=== PATIENT | female | born 1990 | race Caucasian/White ===

== ENCOUNTER 2024-10-10 14:24 | Emergency (ER) | payer OTHER, SELFPAY ==
[2024-10-10 14:27] VITALS: BP 125/92
--- NOTE | 2024-10-10 16:45 | ED.GENMED ---
History of Present Illness
General
Chief Complaint: Dental Problem
Source: patient
Exam Limitations: none
Time Seen by Provider: 10/10/24 16:25
Nursing documentation reviewed up to this point in time: agreed with
History of Present Illness
History of Present Illness:
33 yo female presents for left upper tooth infection. Seen at yesterday for tooth pain, started on Augmentin 875 BID, has had 3 doses. Pain in tooth has resolved but 5 hours ago while working at [facility] [employer] [employer] left cheek began to swell and is getting
worse. Denies F/C/N/V. Denies neck pain or pain with swallowing.
Past History
Past History
ED Past Medical History: Asthma and Other (3 yrs sober, Takes Vyvance and Lamictal.)
Social History
Tobacco: Non-smoker
Alcohol: None
Personal: Single
Employment: Employed
Review of Systems
Review of Systems
Allergies reviewed?: Yes
All Other Systems: ROS reviewed and negative except as documented in HPI and ROS
Phy Exam
Physical Exam
Physical Exam:
GENERAL: No acute distress. A&Ox3.
CONSTITUTIONAL: Afebrile.
EYES: clear, conjunctivae normal
ENMT: moist mucus membranes, Pharynx nl no trismus. Left cheek is mildly to moderately swollen, no redness or warmth. Palpation of left upper gingival buccal border reveals an exquisitely tender small lump, no drainage
Neck: Supple. No palpable lymphadenopathy
RESPIRATORY: Regular respirations, nonlabored, lungs clear.
CARDIOVASCULAR: Regular rate and rhythm, no murmurs, no rubs.
GI: Soft, nontender
MUSCULOSKELETAL: Moves with ease. Well perfused.
SKIN: Warm, dry, pink, cheeks are traci but no sign of cellulitis.
PSYCH: Normal mood and affect. Well kept, interactive and appropriate
NEUROLOGIC: Awake, alert and oriented. No focal neurological deficits
Course
Orders/Labs/Results
Orders:
Orders
10/10/24 16:43
CT Facial Bones W/ Iv Contrast Urgent
Comment:
Reason For Exam: Abscess left upper gum
0.9% Sodium Chloride 1000 ml [Nss] 1,000 ml IV BOLUS
10/10/24 17:01
Add On- LAB Urgent
Tests Added?: hcg. qual.
Complete Blood Count/With Diff Urgent
Comprehensive Metabolic Panel Urgent
HCG, Serum Qualitative Screen Urgent
Comment: ADD ON
Abnormal Lab Results
10/10/24
17:01
WBC 11.4 H 10^3/uL
(4.8-10.8)
Absolute Neuts (auto) 7.8 H 10^3/uL
(1.4-6.5)
Absolute Monos (auto) 0.9 H 10^3/uL
(0.1-0.6)
Glucose 101 H mg/dl
(70-99)
ALT 36 H U/L
(0-35)
10/10/24 17:01
10/10/24 17:01
Vital Signs
Initial and Last Documented VS:
Initial Vital Signs
Temp Pulse Resp BP Pulse Ox
98.7 F 108 16 125/92 99
10/10/24 14:27 10/10/24 14:27 10/10/24 14:27 10/10/24 14:27 10/10/24 14:27
Last Documented Vital Signs
Temp Pulse Resp BP Pulse Ox
98.7 F 88 20 130/74 99
10/10/24 14:27 10/10/24 20:11 10/10/24 20:11 10/10/24 20:11 10/10/24 20:11
MDM/Problems Addressed
Differential Diagnosis Includes:
Dental abscess, periapical abscess, periodontal vs gingival abscess, facial cellulitis
MDM/Problems Addressed:
33 yo female presents for left upper tooth infection. Seen at yesterday for tooth pain, started on Augmentin 875 BID, has had 3 doses. Pain in tooth has resolved but 5 hours ago while working at [facility] [employer] left cheek began to swell and is getting
worse. Denies F/C/N/V. Denies neck pain or pain with swallowing.
CBC with no clinically significant abnormality
CMP with no clinically significant abnormality
hCG negative
Facial bone CT reviewed and radiology report read:
There is mild increased density to the subcutaneous tissues about the left maxilla. There is no definitive focal fluid collection to suggest abscess. The airway is unremarkable. There is bony loss about the roots of the left first maxillary molar
tooth. This could be a periapical cyst. Periapical abscess formation cannot be excluded. It measures roughly 8 mm.
IMPRESSION: No soft tissue abscess formation identified.
Mild inflammatory changes of the soft tissues about the left cheek.
Moderate bilateral submental and cervical lymphadenopathy.
Bony changes about the left first maxillary molar tooth.
Pt does have a dentist appointment for 10/21 but she was told by it can't wait that long and they gave her 3 more numbers to call to get in earlier which she will do. I confirmed that she needs to be seen this coming week.
There is no cellulitis. Nothing to drain at this time.
*Pulse Oximetry
SaO2: 99
Oxygen Mode of Delivery: Room air
Patient hypoxic: not evaluated
*Critical Care Note
Total Time (30-74mins, 75-104mins- exclusive of procedures): Not Applicable
ED Attending Note
-
Portions of this chart may have been created with voice recognition software.� Occasional wrong word or��sound alike� substitutions may have occurred due to the inherent limitations of voice recognition software.
Discharge Plan
Departure
Patient Disposition: Home (Routine Discharge)
Date of Disposition: 10/10/24
Time of Disposition: 20:20
Patient with high blood pressure during this ER visit?: No
Condition: Good
Discharge Problem:
Dental abscess
Instructions: Dental abscess - ED (DC)
Referrals:
UNKNOWN - PT DOES,NOT KNOW [Family Provider]
Activity Restrictions/Additional Instructions:
As we discussed, you need to see a dentist this week, preferably in 2 to 3 days
Call the numbers you were given by urgent care and get in to see someone, you need to have the tooth pulled.
Return here immediately for fever above 100.5, vomiting, worsening swelling of the face or feeling sicker in any way
Continue your Augmentin as ordered
Interventions
Interventions:
*Risk Screen - Suicide Last Done: 10/10/24 14:27
*Neglect/Abuse Screening Last Done: 10/10/24 14:27
*Nursing Disposition Last Done: 10/10/24 20:20
Discharge Date and Time
Discharge Date/Time: 10/10/24 21:37
Print Language: ROMANSH
[2024-10-10] MEDS: NSS 1000 IV (17:03)
[2024-10-10 17:15] LABS: Hematocrit 38.7 % (37.0-47.0); Hemoglobin 13.3 g/dL (12.0-16.0); Mean Corp Hgb Conc. 34.4 g/dL (33.0-37.0); Mean Corpuscular Volume 84.5 fL (81.0-99.0); Nucleated Red Blood Cells % 0 %; Platelet Count 279 10^3/uL (130-400); Red Cell Dist. Width 12.5 % (11.5-14.5)
[2024-10-10 17:35] LABS: HCG, Serum Qualitative Screen Negative
[2024-10-10 17:39] LABS: ALT (SGPT) 36 U/L (0-35); AST (SGOT) 25 U/L (14-36); Albumin 4.8 g/dl (3.5-5.0); Alkaline Phosphatase 49 U/L (38-126); Blood Urea Nitrogen 11 mg/dl (7-17); Calcium 9.6 mg/dl (8.4-10.2); Carbon Dioxide 23 mmol/L (22-30); Chloride 106 mmol/L (98-107); Glucose 101 mg/dl (70-99); Potassium 4.3 mmol/L (3.5-5.1); Sodium 136 mmol/L (135-145); Total Protein 7.5 g/dl (6.3-8.2); eGFR > 60.00
[2024-10-10 20:11] VITALS: BP 130/74
== END 2024-10-10 21:37 | disposition home or self-care (01) ==
LOC: EMR 14:24
PROVIDERS: Registered Nurse; EMERGENCY PHYSICIAN Emergency Medicine
DX: K04.7 Periapical abscess without sinus (principal); J45.909 Unspecified asthma, uncomplicated
CPT/HCPCS: 99284; 96360; 70487; 80053; 84703; 85025; Q9967